=== PATIENT | male | born 1985 | race Caucasian/White ===

== ENCOUNTER 2025-06-18 00:54 | Observation (INO) | payer MEDICAID ==
[2025-06-18 01:24] LABS: BASOPHILS ABSOLUTE AUTO 0.04 K/uL (0.00-0.10); BASOPHILS PERCENT AUTO 0.2 % (0.1-1.3); EOSINOPHILS PERCENT AUTO 0.1 % (0.0-5.4); IMMATURE GRAN ABSOLUTE AUTO 0.07 K/uL (0.00-0.23); IMMATURE GRAN PERCENT AUTO 0.4 % (0.0-0.7); LYMPHOCYTES ABSOLUTE AUTO 1.09 K/uL (0.8-3.3); LYMPHOCYTES PERCENT AUTO 6.8 % (11.4-47.7); MONOCYTES ABSOLUTE AUTO 0.84 K/uL (0.20-0.90); MONOCYTES PERCENT AUTO 5.2 % (3.3-12.6); NEUTROPHILS ABSOLUTE AUTO 14.08 K/uL (1.0-7.6); NEUTROPHILS PERCENT AUTO 87.3 % (40.0-78.1); PLATELET COUNT,PLT 355 K/uL (130-375); RED BLOOD CELL COUNT 5.29 M/uL (4.14-5.76); WHITE BLOOD CELL COUNT,WBC 16.1 K/uL (3.2-11.0)
[2025-06-18 01:25] LABS: EOSINOPHILS ABSOLUTE AUTO 0.02 K/uL (0.00-0.40)
[2025-06-18 01:45] LABS: A/G RATIO 0.8 (1.2-2.2); ALANINE AMINOTRANSFERASE,ALT 31 U/L (12-78); ASPARTATE AMNIOTRANSFERASE,AST 26 U/L (15-37); BILIRUBIN TOTAL 0.8 mg/dL (0.2-1.0); BLOOD UREA NITROGEN,BUN 22 mg/dL (7-18); CARBON DIOXIDE,CO2 25 mmol/L (21-32); CHLORIDE,CL 103 mmol/L (100-108); CREATININE 0.7 mg/dL (0.8-1.3); ESTIMATED GFR 120 mL/min (>60); GLUCOSE RANDOM 114 mg/dL (74-106); POTASSIUM,K 3.8 mmol/L (3.6-5.2); PROTEIN TOTAL,TP 8.2 g/dL (6.4-8.2); SODIUM,NA 137 mmol/L (140-148)
[2025-06-18] MEDS: Sodium Chloride 0.9% 10 ML Syringe FLUSH PRN (01:58)
[2025-06-18] MEDS: Iopamidol 612 MG/ML 100 ML Bottle IV PRN (01:58)
[2025-06-18] MEDS ORDERED: Scopalamine 1mg/3day Transdermal Patch TRDERM PRN (02:43)
[2025-06-18] MEDS ORDERED: diphenhydrAMINE 50 MG/ML SDV IVPUSH PRN (02:43)
[2025-06-18] MEDS ORDERED: Naloxone 0.4 MG/ML SDV IVPUSH PRN (02:43)
[2025-06-18] MEDS: Ondansetron 4 MG/2 ML SDV IV PRN (03:19)
[2025-06-18 03:59] LABS: AMPHETAMINES SCREEN, URINE PRESUMPTIVE POSITIVE (NEGATIVE); METHAMPHETAMINES SCREEN, URINE PRESUMPTIVE POSITIVE (NEGATIVE)
[2025-06-18 04:00] LABS: METHADONE SCREEN, URINE NEGATIVE (NEGATIVE); OXYCODONE SCREEN,URINE NEGATIVE (NEGATIVE); PROPOXYPHENE SCREEN,URINE NEGATIVE (NEGATIVE); THC SCREEN,URINE 50 NG/ML PRESUMPTIVE POSITIVE (NEGATIVE)
[2025-06-18] MEDS: Piperacillin/Tazobactam/Dext 4.5 GM in Premix Bag 1 BAG IV ONE (04:00)
[2025-06-18] MEDS ORDERED: Piperacillin/Tazobactam/Dext 4.5 GM in Premix Bag 1 BAG IV SCH ×2 (07:00→14:00)
[2025-06-18] MEDS ORDERED: Succinylcholine 200 MG/10 ML MDV ONE (08:24)
[2025-06-18] MEDS ORDERED: Propofol 200 MG/20 ML SDV ONE (08:24)
[2025-06-18] MEDS ORDERED: Ondansetron 4 MG/2 ML SDV ONE (08:24)
[2025-06-18] MEDS ORDERED: Dexamethasone 4 MG/ML SDV ONE (08:24)
[2025-06-18] MEDS ORDERED: Glycopyrrolate 0.2 MG/ML 5 ML MDV ONE (08:24)
[2025-06-18] MEDS ORDERED: fentaNYL 250 MCG/5 ML SDV ONE ×2 (08:25→09:14)
[2025-06-18] MEDS ORDERED: Benzocaine/Cetylpyridinium/Menthol Lozenge MUCMEM PRN (08:41)
[2025-06-18] MEDS ORDERED: hydrOXYzine HCL 100 MG/2 ML SDV IM PRN (08:41)
[2025-06-18] MEDS ORDERED: Acetaminophen/HYDROcodone 325-5 MG Tab PO PRN (08:41)
[2025-06-18] MEDS ORDERED: Scopalamine 1mg/3day Transdermal Patch ONE (09:29)
[2025-06-18] MEDS ORDERED: Ketorolac 30 MG/ML SDV ONE (09:46)
[2025-06-18] MEDS: Acetaminophen/HYDROcodone 325-5 MG Tab PO PRN (11:52)
== END 2025-06-18 13:10 | disposition home or self-care (01) ==
LOC: JP.ED 00:54 → JP.MS 02:37
PROVIDERS: ADMIT Surgery; ATTEND Surgery
DX: K35.30 Acute appendicitis with localized peritonitis, without perforation or gangrene (principal)
CPT/HCPCS: 00840; 36415; 44970; 74177; 80053; 80305; 80307; 83605; 83690; 85025; 87070; 87075; 87077; 87186; 87205; 93005; 96361; 96365; 96366; 96375; 96376; 99285; A9270; G0378; J0169; J0330; J0665; J1100; J1171; J1596; J1885; J1920; J2270; J2405; J2543; J2704; J2710; J2795; J3010; J7030; Q9967; J3490